=== PATIENT | female | born 1980 | race Caucasian/White ===

== ENCOUNTER → 2016-12-06 | Outpatient (CLI) | payer OTHER ==
[~2016-12-06] MED LIST: ALPR0.5T PO; CELE50CA PO; DULO20CA PO; HYDR-2165 PO
== END | disposition home or self-care (01) ==
LOC: SPEC 17:11
PROVIDERS: ATTEND Nurse Practitioner Women's Health
DX: Z11.3 Encounter for screening for infections with a predominantly sexual mode of transmission (principal)
CPT/HCPCS: 87491; 87591

== ENCOUNTER 2017-03-20 06:03 | Day surgery (SDC) | payer OTHER ==
[~2017-03-20] VITALS: Ht 167.6 cm; Wt 70.8 kg
[~2017-03-20 06:03] MED LIST changes: +BUPR150T15 PO; +DULO60CA6 PO; +HYDR-963 PO; +METO10TA81 PO; +PREG75CA PO
[2017-03-20] MEDS ORDERED: LIDOCAINE 1% 1 ML SYRINGE. ID PRN (07:00)
[2017-03-20] MEDS ORDERED: fentaNYL PF VIAL 100 MCG/2 ML VIAL IV PRN (07:00)
[2017-03-20] MEDS ORDERED: PROCHLORPERAZINE 10 MG/2 ML VIAL. IV PRN (07:00)
[2017-03-20] MEDS ORDERED: ONDANSETRON PF 4 MG/2 ML VIAL. IV PRN (07:00)
[2017-03-20] MEDS ORDERED: MORPHINE SULFATE 2 MG/ML DISP.SYRIN. IV PRN (07:00)
[2017-03-20] MEDS ORDERED: HYDROmorphone 2 MG/ML VIAL IV PRN (07:00)
[2017-03-20] MEDS ORDERED: IV RINGERS,LACTATED 1000ML 1,000 ML IV SCH (07:00)
[2017-03-20] MEDS ORDERED: SCOPOLAMINE 1.5MG PATCH. TD ONE (07:30)
[2017-03-20] MEDS ORDERED: fentaNYL PF VIAL 100 MCG/2 ML VIAL ONE (07:51)
[2017-03-20] MEDS ORDERED: MIDAZOLAM HCL/PF 2 MG/2 ML VIAL. ONE (07:51)
[2017-03-20] MEDS ORDERED: LIDOCAINE 2% PF Vial for OR 5 ML VIAL. ONE (07:52)
[2017-03-20] MEDS ORDERED: PROPOFOL 20 ML IV ONE (07:52)
[2017-03-20] MEDS ORDERED: DEXAMETHASONE SOD PHOS 20 MG/5 ML VIAL. ONE (07:52)
[2017-03-20] MEDS ORDERED: ROCURONIUM 100 MG/10 ML VIAL. ONE (07:52)
[2017-03-20] MEDS ORDERED: ONDANSETRON PF 4 MG/2 ML VIAL. ONE (07:52)
[2017-03-20] MEDS ORDERED: DESFLURANE 61 TO 120 MINUTES IH ONE (07:52)
[2017-03-20 08:33] LABS: NEG OBC UR NEG; POS OBC UR POS
[2017-03-20] MEDS ORDERED: BUPIVACAINE-EPI 0.25%-1:200000 MPF 30 ML VIAL. ONE (08:43)
[2017-03-20] MEDS ORDERED: GLYCOPYRROLATE 1 MG/5 ML VIAL. ONE (09:04)
[2017-03-20] MEDS ORDERED: NEOSTIGMINE 10 MG/10 ML VIAL. ONE (09:04)
--- NOTE | 2017-03-20 09:24 | PDOC ---
BRIEF OPERATIVE NOTE Pre-Op Diagnosis 1. AUB 2. CPP Post-Op Diagnosis Same + Endometriosis Procedure Performed Op [facility] Resection Endometriosis Surgeon Dr. Marte Anesthesia Type: General Blood Loss 10 ml Specimens Obtained peritoneal biopsy of Right pelvic sidewall, Left pelvic sidewall and posterior culde sac Findings nml fallopian tubes and ovaries catarina, mildly enlarged uterus, endometriosis Right and Left pelvic sidewall and posterior culde sac Complications none ELENA MARTE Jr, MD Mar 20, 2017 09:23
--- NOTE | 2017-03-20 09:24 | DISCH ---
DISCHARGE INSTRUCTIONS Condition on Discharge Condition on Discharge: Stable Activity After Discharge Activity Instructions for Disc: Activity as tolerated Lifting Instructions after Dis: No heavy lifting Driving Instructions after Dis: Do not drive today Diet after Discharge Diet after Discharge: Regular Contacting the DRPawan after DC Call your doctor for: Concerns you may have Follow-Up Follow up with: Dr. Marte in 1 week. ELENA MARTE Jr, MD Mar 20, 2017 09:24
[2017-03-20] MEDS: fentaNYL PF VIAL 100 MCG/2 ML VIAL IV PRN ×4 (09:26→10:04)
[2017-03-20] MEDS ORDERED: OXYC-323 PO (09:34)
--- NOTE | 2017-03-20 09:40 | OP ---
DATE OF SURGERY: 03/20/2017 PREOPERATIVE DIAGNOSES: 1. Abnormal uterine bleeding. 2. Chronic pelvic pain. POSTOPERATIVE DIAGNOSES: 1. Abnormal uterine bleeding. 2. Chronic pelvic pain. 3. Endometriosis. PROCEDURE: Operative laparoscopy, resection of endometriosis. SURGEON: Brennan Marte M.D. ANESTHESIA: GETA. ESTIMATED BLOOD LOSS: 10 mL. COMPLICATIONS: None. FINDINGS: Normal fallopian tubes and ovaries bilaterally, mildly enlarged uterus, endometriosis in the right and left pelvic sidewall as well as in posterior cul-de-sac. SUMMARY: A 36-year-old female with a greater than 2-year history of abnormal uterine bleeding, chronic pelvic pain, counseled on operative laparoscopy for possible resection of endometriosis and voiced clear understanding to proceed. DESCRIPTION OF PROCEDURE: The patient was taken to surgery suite and placed in dorsal lithotomy position, was prepped with Betadine solution for vaginal prep and ChloraPrep for abdominal prep. After adequate anesthesia, bivalve speculum was placed vaginally. Anterior lip of the cervix grasped with a single tooth tenaculum. Uterine acorn manipulator was then placed. The bivalve speculum was removed. Attention was placed on abdomen. Small transverse skin incision was made just below the umbilicus with scalpel. Veress needle was then placed through the infraumbilical incision site. The abdomen was allowed to insufflate up to 1-1/2 liters CO2 gas. The Veress needle was then removed, 5 mm trocar was placed. The scope was positioned. The uterus was mildly enlarged. Fallopian tubes and ovaries appeared normal bilaterally. There were three areas of suspected endometriosis on the right and left pelvic sidewall as well as in the posterior cul-de-sac. Two incisions made in the left lower quadrant, in which 5 mm trocars were placed. An additional port in the right lower quadrant of 5 mm trocar was placed as well. With the aid of graspers and EndoShears, the three areas of endometriosis were resected at peritoneal level. The areas were hemostatic. This was verified with suction irrigation. Small amount of normal saline was left in posterior cul-de-sac. The trocars were then removed under direct visualization. Abdomen was allowed to deflate as much as possible. The four skin incisions were reapproximated using 4-0 Vicryl suture in subcuticular manner. 0.25% Marcaine with epinephrine was injected at each incision site. Uterine acorn manipulator and single tooth tenaculum were removed. The patient tolerated procedure well and was taken to recovery room in stable condition. Sponge and needle counts correct x 3. BRENNAN MARTE MD DR: ZAIN/trini JOB#: [id number] / [id number]
[2017-03-20] MEDS ORDERED: oxyCODONE/APAP 7.5/325 1 TAB TABLET PO PRN (10:00)
[2017-03-20 10:18] VITALS: BP 109/63
--- NOTE | 2017-03-21 17:03 | PATHOLOGY ---
PATHOLOGY REPORT * * * * * * * * FINAL DIAGNOSIS: A. Fibrous tissue, left pelvic sidewall peritoneal biopsy: - Fibrosis. B. Focal mesothelial-lined fibromembranous and adipose tissue, posterior cul-de-sac biopsy: - Endometriosis and focal subserosal calcification. C. Fibroadipose tissue, right pelvic sidewall peritoneal biopsy: - Fibrosis. COMMENT: There is no evidence of malignancy. (JPM:mgr; 03/21/2017) REPORT ELECTRONICALLY SIGNED BY: Norbert Farah M.D. DATE/TIME: 03/21/2017 17:02 * * * * * * * * GROSS PATHOLOGY: A. Received in formalin labeled "Chayo Gonzalez, left pelvic sidewall peritoneal biopsy," is a segment of lerma david soft tissue measuring 0.7 cm in maximum dimension. The specimen is submitted entirely in cassette A1. B. Received in formalin labeled "posterior cul de sac biopsy," is a segment of yellow david, fatty appearing soft tissue measuring 0.9 cm in maximum dimension. The specimen is submitted entirely in cassette B1. C. Received in formalin labeled "right pelvic sidewall peritoneal biopsy," is a segment of pink david soft tissue measuring 0.8 cm in maximum dimension. The specimen is submitted entirely in cassette C1. (JPM; 03/20/17) INITIAL CPT CODE(S): A; 57196 B; 78545 C; 84693 Professional services performed [place] [facility] [place] [address] Technical services performed by [facility] at [address] [place] [address], [facility] [address], [place] [address]. SPECIMEN(S) RECEIVED: A.Left pelvic sidewall peritoneal biopsy B.Posterior cul de sac biopsy C.Right pelvic sidewall peritoneal biopsy CLINICAL HISTORY: Endometriosis PATIENT: CHAYO GONZALEZ N /AGE: 108/28/1980 (Age: 36) PATIENT #: [id number] ALT CASE #: SPECIMEN COLLECTION DATE: 03/20/2017 SPECIMEN RECEIVED DATE: 03/20/2017 [facility] - [address] [place] [address] - PHONE: [phone] * * * END OF REPORT * * *
== END 2017-03-20 10:53 | disposition home or self-care (01) ==
LOC: SURG 06:03
PROVIDERS: ATTEND Obstetrics & Gynecology
DX: N80.0 Endometriosis of uterus (principal); M19.90 Unspecified osteoarthritis, unspecified site; F41.9 Anxiety disorder, unspecified; F32.9 Major depressive disorder, single episode, unspecified; F17.200 Nicotine dependence, unspecified, uncomplicated; Z86.69 Personal history of other diseases of the nervous system and sense organs; Z87.39 Personal history of other diseases of the musculoskeletal system and connective tissue; Z72.0 Tobacco use
CPT/HCPCS: 58662; 81025; A4215; J0780; J1100; J2001; J2250; J2405; J2704; J2710; J3010; J3490; J7030; J7120; 88305; J2270

== ENCOUNTER → 2017-06-23 | Outpatient (CLI) | payer OTHER ==
[~2017-06-23] MED LIST changes: +OXYC-323 PO
--- NOTE | 2017-06-23 15:41 | RAD ---
Indication endometriosis. Pelvic pain. Initially transabdominal scans were obtained. Initial transabdominal scans were supplemented with transvaginal scans. HCG status is uncertain but for the purposes of this dictation will be assumed to be negative. Note is made of a previous ultrasound examination 07/31/2016. The uterus is incidentally noted to be retroverted. The uterus measures approximately 6.9 x 4.3 x 5.3 cm. The endometrial thickness is diminutive at approximately 2 mm. Note was made of a mass at the fundus of the uterus, measuring approximately 2 cm in greatest dimension compatible with a fibroid. The ovaries appeared unremarkable. IMPRESSION: Fibroid uterus. No additional finding is seen
== END | disposition home or self-care (01) ==
LOC: US 12:54
DX: D25.9 Leiomyoma of uterus, unspecified (principal); G89.29 Other chronic pain
CPT/HCPCS: 76830; 76856